=== PATIENT | female | born 1945 | race Caucasian/White ===

== ENCOUNTER → 2020-12-14 | Outpatient (CLI) | payer MEDICARE ==
[~2020-12-14] MED LIST: REGADENOSON 0.4 MG/5 ML PF SYRINGE IVP ONE; SESTAMIBI TC99M/UD ISOTOPE 1 EA INJ INJ ONE
[2020-12-14 10:49] VITALS: BP 135/70
[2020-12-14 11:03] VITALS: BP 166/75
== END | disposition home or self-care (01) ==
LOC: CARDMN 08:33
PROVIDERS: ATTEND Internal Medicine Cardiovascular Disease
DX: I50.9 Heart failure, unspecified (principal); E11.65 Type 2 diabetes mellitus with hyperglycemia; I25.9 Chronic ischemic heart disease, unspecified; R07.9 Chest pain, unspecified; R06.02 Shortness of breath
CPT/HCPCS: 78452; 93017; 93306; A9500